=== PATIENT | male | born 1980 | race Hispanic/Latino ===

== ENCOUNTER 2023-09-20 22:43 | Emergency (ER) | payer OTHER ==
[2023-09-21] MEDS ORDERED: Ketorolac Tromethamine 30 MG (1 mL) VIAL ONE (00:08)
[2023-09-21] MEDS ORDERED: Metoclopramide HCl 10 MG (2 mL) VIAL ONE (00:08)
[2023-09-21 00:44] LABS: Bilirubin Neg (Negative); Blood, Urine Negative (Negative); Clarity Clear (Clear); Glucose, Urine (Dipstick) Normal (Negative); Ketone, Urine Negative (Negative); Leukocyte Negative (Negative); Nitrite Negative (Negative); Protein, Urine (Dipstick) Negative (Neg-Trace); Urobilinogen Normal mg/dL (Less than 2)
[2023-09-21 01:12] LABS: Bacteria/HPF None Seen HPF (None Seen); CAUTI Indications for Culture Alt mental st,lethar; RBC/HPF None Seen HPF (0-3); Squamous Epithelial None Seen HPF (0-3); WBC/HPF None Seen HPF (0-3)
[2023-09-21 01:14] LABS: Urine Culture Reflex No No
== END 2023-09-21 02:19 | disposition home or self-care (01) ==
LOC: CSHERS 22:43
DX: G43.909 Migraine, unspecified, not intractable, without status migrainosus (principal); H66.93 Otitis media, unspecified, bilateral
CPT/HCPCS: 81001; 96374; 96375; J1885; J2765

== ENCOUNTER 2023-09-30 23:21 | Emergency (ER) | payer OTHER ==
[2023-10-01] MEDS ORDERED: Ondansetron ODT 4 MG TAB ONE (00:05)
== END 2023-10-01 02:48 | disposition home or self-care (01) ==
LOC: CSHERS 23:21
DX: R11.2 Nausea with vomiting, unspecified (principal); T40.725A Adverse effect of synthetic cannabinoids, initial encounter
CPT/HCPCS: 99283; Q0162

== ENCOUNTER 2023-10-21 21:09 | Emergency (ER) | payer OTHER ==
[2023-10-21 22:20] LABS: #Basophils 0.03 10x3/uL (0.0-0.2); #Eosinphils 0.13 10x3/uL (0.0-0.5); #Monocytes 0.41 10x3/uL (0.0-1.1); #Neutrophils 5.22 10x3/uL (1.5-8.4); %Basophils 0.4 % (0.0-2.0); %Eosinophils 1.7 % (0.0-6.0); %Lymphocytes 23.5 % (18.0-47.0); %Monocytes 5.4 % (0.0-10.0); %Neutrophils 68.7 % (40.0-75.0); Hematocrit 43.5 % (38.8-50.0); Hemoglobin 15.6 g/dL (13.5-17.5); Mean Corpuscular HGB CONC 35.9 g/dL (32.0-36.0); Mean Corpuscular Hemoglobin 27.9 pg (27.0-33.0); Mean Corpuscular Volume 77.8 fL (81.2-95.1); Platelet Count 196 10x3/uL (150-450); RBC Distribution Width 12.2 % (11.5-14.5); Red Blood Cell (RBC) Count 5.59 10x6/uL (4.32-5.72); White Blood Cell (WBC) Count 7.6 10x3/uL (3.5-10.5)
[2023-10-21 22:35] LABS: Anion Gap 15 mmol/L (10-20); BUN (Urea Nitrogen) 18 mg/dL (8.9-20.6); Calc. Creatinine Clearance 0 mL/min (70-130); Calcium 9.7 mg/dL (7.8-10.44); Carbon Dioxide 23 mmol/L (22-29); Chloride 105 mmol/L (98-107); Estimated GFR 75; Glucose 94 mg/dL (70-105); Potassium 3.7 mmol/L (3.5-5.1); Sodium 139 mmol/L (136-145)
[2023-10-21 22:43] LABS: Troponin I Less than 0.010 ng/mL (< 0.028)
== END 2023-10-21 23:48 | disposition home or self-care (01) ==
LOC: CSHERS 21:09
DX: R07.89 Other chest pain (principal)
CPT/HCPCS: 71045; 80048; 84484; 85025; 85379; 93005; 96374; J1885

== ENCOUNTER 2023-11-28 14:45 | Outpatient (CLI) | payer OTHER | END 2023-11-28 14:46 | disposition home or self-care (01) | LOC: CSHMRI 14:45 | PROVIDERS: ATTEND Family Medicine | DX: M50.01 Cervical disc disorder with myelopathy, high cervical region (principal) | CPT/HCPCS: 72141 ==

== ENCOUNTER 2024-01-26 15:12 | Emergency (ER) | payer OTHER ==
[2024-01-26] MEDS ORDERED: diphenhydrAMINE 50 MG/ML VIAL ONE (17:53)
[2024-01-26] MEDS ORDERED: Ketorolac Tromethamine 30 MG (1 mL) VIAL ONE (17:54)
[2024-01-26] MEDS ORDERED: Metoclopramide HCl 10 MG (2 mL) VIAL ONE (17:54)
[2024-01-26 18:37] LABS: #Basophils 0.02 10x3/uL (0.0-0.2); #Eosinophils 0.11 10x3/uL (0.0-0.5); #Monocytes 0.38 10x3/uL (0.0-1.1); #Neutrophils 5.05 10x3/uL (1.5-8.4); %Basophils 0.3 % (0.0-2.0); %Eosinophils 1.5 % (0.0-6.0); %Lymphocytes 25.3 % (18.0-47.0); %Monocytes 5.1 % (0.0-10.0); %Neutrophils 67.5 % (40.0-75.0); Hematocrit 45.1 % (38.8-50.0); Hemoglobin 15.1 g/dL (13.5-17.5); Mean Corpuscular HGB CONC 33.5 g/dL (32.0-36.0); Mean Corpuscular Hemoglobin 26.4 pg (27.0-33.0); Mean Corpuscular Volume 78.8 fL (81.2-95.1); Mean Platelet Volume 8.6 fL (7.4-10.4); Platelet Count 204 10x3/uL (150-450); RBC Distribution Width 12.4 % (11.5-14.5); Red Blood Cell (RBC) Count 5.72 10x6/uL (4.32-5.72); White Blood Cell (WBC) Count 7.5 10x3/uL (3.5-10.5)
[2024-01-26 18:49] LABS: ALT (SGPT) 19 U/L (8-55); AST (SGOT) 19 U/L (5-34); Albumin 4.4 g/dL (3.5-5.0); Alkaline Phosphatase 74 U/L (40-110); Anion Gap 13 mmol/L (10-20); BUN (Urea Nitrogen) 15 mg/dL (8.9-20.6); Bilirubin, Total 0.6 mg/dL (0.2-1.2); Calc. Creatinine Clearance 0 mL/min (70-130); Calcium 9.9 mg/dL (7.8-10.44); Carbon Dioxide 26 mmol/L (22-29); Chloride 106 mmol/L (98-107); Estimated GFR 71; Globulin 2.6 g/dL (2.4-3.5); Glucose 89 mg/dL (70-105); Potassium 4.1 mmol/L (3.5-5.1); Sodium 141 mmol/L (136-145)
[2024-01-26 18:55] LABS: Troponin I Less than 0.010 ng/mL (< 0.028)
== END 2024-01-26 19:48 | disposition home or self-care (01) ==
LOC: CSHERS 15:12
DX: G43.909 Migraine, unspecified, not intractable, without status migrainosus (principal); R07.89 Other chest pain
CPT/HCPCS: 70450; 71046; 80053; 84484; 85025; 93005; 96374; 96375; J1200; J1885; J2765

== ENCOUNTER → 2024-01-26 | Emergency (ER) | payer OTHER | LOC: CSHERS 12:49 | DX: Z53.21 Procedure and treatment not carried out due to patient leaving prior to being seen by health care provider (principal) ==

== ENCOUNTER 2024-01-29 17:48 | Emergency (ER) | payer OTHER ==
[2024-01-29] MEDS ORDERED: methylPREDNISolone Sod Succ/PF 125 MG/2 ML VIAL ONE (20:03)
[2024-01-29] MEDS ORDERED: diphenhydrAMINE 50 MG/ML VIAL ONE (20:03)
[2024-01-29] MEDS ORDERED: Metoclopramide HCl 10 MG (2 mL) VIAL ONE (20:04)
[2024-01-29] MEDS ORDERED: Ketorolac Tromethamine 30 MG (1 mL) VIAL ONE (20:04)
== END 2024-01-29 21:44 | disposition home or self-care (01) ==
LOC: CSHERS 17:48
DX: G43.909 Migraine, unspecified, not intractable, without status migrainosus (principal)
CPT/HCPCS: 96374; 96375; J1200; J1885; J2765; J2919

== ENCOUNTER 2024-02-07 14:21 | Emergency (ER) | payer OTHER ==
[2024-02-07] MEDS ORDERED: Ketorolac Tromethamine 30 MG (1 mL) VIAL ONE (14:45)
[2024-02-07] MEDS ORDERED: Prochlorperazine 10 MG/2 ML VIAL ONE (14:45)
[2024-02-07 15:17] LABS: #Basophils 0.03 10x3/uL (0.0-0.2); #Eosinophils 0.23 10x3/uL (0.0-0.5); #Monocytes 0.49 10x3/uL (0.0-1.1); %Basophils 0.4 % (0.0-2.0); %Eosinophils 2.9 % (0.0-6.0); %Lymphocytes 28.9 % (18.0-47.0); %Monocytes 6.1 % (0.0-10.0); %Neutrophils 61.4 % (40.0-75.0); Hematocrit 44.9 % (38.8-50.0); Mean Corpuscular HGB CONC 33.4 g/dL (32.0-36.0); Mean Corpuscular Hemoglobin 26.5 pg (27.0-33.0); Mean Corpuscular Volume 79.5 fL (81.2-95.1); Mean Platelet Volume 8.8 fL (7.4-10.4); Platelet Count 209 10x3/uL (150-450); RBC Distribution Width 12.5 % (11.5-14.5); Red Blood Cell (RBC) Count 5.65 10x6/uL (4.32-5.72)
[2024-02-07 15:34] LABS: Anion Gap 14 mmol/L (10-20); BUN (Urea Nitrogen) 15 mg/dL (8.9-20.6); Calc. Creatinine Clearance 0 mL/min (70-130); Calcium 9.7 mg/dL (7.8-10.44); Carbon Dioxide 25 mmol/L (22-29); Chloride 105 mmol/L (98-107); Estimated GFR 69; Glucose 97 mg/dL (70-105); Potassium 4.1 mmol/L (3.5-5.1); Sodium 140 mmol/L (136-145)
[2024-02-07 15:42] LABS: Troponin I Less than 0.010 ng/mL (< 0.028)
== END 2024-02-07 16:09 | disposition home or self-care (01) ==
LOC: CSHERS 14:21
DX: N17.9 Acute kidney failure, unspecified (principal); R51.9 Headache, unspecified
CPT/HCPCS: 80048; 84484; 85025; 93005; 96365; 96375; J0780; J1885

== ENCOUNTER 2024-02-17 12:30 | Emergency (ER) | payer OTHER ==
[2024-02-17] MEDS ORDERED: Metoclopramide HCl 10 MG (2 mL) VIAL ONE (13:24)
[2024-02-17] MEDS ORDERED: diphenhydrAMINE 50 MG/ML VIAL ONE (13:24)
[2024-02-17] MEDS ORDERED: Ketorolac Tromethamine 30 MG (1 mL) VIAL ONE (13:25)
[2024-02-17] MEDS ORDERED: methylPREDNISolone Sod Succ/PF 125 MG/2 ML VIAL ONE (13:57)
== END 2024-02-17 15:25 | disposition home or self-care (01) ==
LOC: CSHERS 12:30
DX: G43.909 Migraine, unspecified, not intractable, without status migrainosus (principal)
CPT/HCPCS: 96374; 96375; J1200; J1885; J2765; J2919

== ENCOUNTER 2024-03-02 19:36 | Emergency (ER) | payer OTHER ==
[2024-03-02] MEDS ORDERED: Ketorolac Tromethamine 30 MG (1 mL) VIAL ONE (20:37)
[2024-03-02] MEDS ORDERED: methylPREDNISolone Sod Succ/PF 125 MG/2 ML VIAL ONE (20:37)
== END 2024-03-02 21:52 | disposition home or self-care (01) ==
LOC: CSHERS 19:36
DX: H92.03 Otalgia, bilateral (principal); M54.12 Radiculopathy, cervical region; R29.700 NIHSS score 0
CPT/HCPCS: 87428; 96372; 99283; J1885; J2919

== ENCOUNTER 2024-03-12 17:21 | Emergency (ER) | payer OTHER ==
[2024-03-12] MEDS ORDERED: Famotidine 20 MG TAB ONE (19:27)
== END 2024-03-12 19:44 | disposition home or self-care (01) ==
LOC: CSHERS 17:21
DX: R22.2 Localized swelling, mass and lump, trunk (principal); T39.8X5A Adverse effect of other nonopioid analgesics and antipyretics, not elsewhere classified, initial encounter; T39.315A Adverse effect of propionic acid derivatives, initial encounter
CPT/HCPCS: 93005; 93010; 99283

== ENCOUNTER 2025-03-09 18:23 | Emergency (ER) | payer OTHER ==
[2025-03-09] MEDS ORDERED: Metoclopramide HCl 10 MG (2 mL) VIAL ONE (22:15)
[2025-03-09] MEDS ORDERED: diphenhydrAMINE 50 MG/ML VIAL ONE (22:15)
[2025-03-09] MEDS ORDERED: Ketorolac Tromethamine 30 MG (1 mL) VIAL ONE (22:16)
[2025-03-09 22:18] LABS: #Basophils Less than 0.03 10x3/uL (0.0-0.2); #Eosinophils 0.16 10x3/uL (0.0-0.5); #Monocytes 0.69 10x3/uL (0.0-1.1); #Neutrophils 9.67 10x3/uL (1.5-8.4); %Basophils 0.2 % (0.0-2.0); %Eosinophils 1.2 % (0.0-6.0); %Lymphocytes 17.8 % (18.0-47.0); %Monocytes 5.4 % (0.0-10.0); %Neutrophils 75.1 % (40.0-75.0); Hematocrit 44.8 % (38.8-50.0); Hemoglobin 15.6 g/dL (13.5-17.5); Mean Corpuscular Hemoglobin 26.7 pg (27.0-33.0); Mean Corpuscular Volume 76.7 fL (81.2-95.1); Platelet Count 190 10x3/uL (150-450); Red Blood Cell (RBC) Count 5.84 10x6/uL (4.32-5.72); White Blood Cell (WBC) Count 12.87 10x3/uL (3.5-10.5)
[2025-03-09 22:32] LABS: ALT (SGPT) 39 U/L (Less than 45); AST (SGOT) 25 U/L (11-34); Albumin 4.4 g/dL (3.1-4.5); Alkaline Phosphatase 85 U/L (40-110); Anion Gap 13 mmol/L (10-20); BUN (Urea Nitrogen) 15 mg/dL (8.9-20.6); Bilirubin, Total 0.5 mg/dL (0.3-1.2); Calc. Creatinine Clearance 0 mL/min (70-130); Calcium 9.2 mg/dL (7.8-10.44); Carbon Dioxide 23 mmol/L (22-29); Chloride 107 mmol/L (98-107); Globulin 2.4 g/dL (2.4-3.5); Glucose 108 mg/dL (70-105); Potassium 3.9 mmol/L (3.5-5.1); Sodium 139 mmol/L (136-145)
[2025-03-09 22:38] LABS: Troponin I Less than 0.010 ng/mL (< 0.028)
== END 2025-03-09 23:35 | disposition home or self-care (01) ==
LOC: CSHERS 18:23
DX: G43.919 Migraine, unspecified, intractable, without status migrainosus (principal); H66.92 Otitis media, unspecified, left ear
CPT/HCPCS: 80053; 84484; 85025; 87428; 93005; 96374; 96375; J1200; J1885; J2765